=== PATIENT | male | born 1985 | race Caucasian/White ===

== ENCOUNTER 2022-01-07 09:43 | Inpatient (IN) | payer MEDICAID, OTHER ==
[~2022-01-07] VITALS: Ht 175.3 cm; Wt 203.1 kg
[2022-01-07] MEDS ORDERED: FUROSEMIDE 40 MG/4 ML VIAL IV ONE (11:00)
[2022-01-07] MEDS ORDERED: LABETALOL HCL 5 MG/ML 4ML SYRINGE IV ONE (15:15)
[2022-01-07] MEDS ORDERED: NITROGLYCERIN 0.4 MG SL TAB SL PRN (15:15)
[2022-01-07] MEDS ORDERED: MORPHINE SULFATE INJECTION 2 MG/ML SYRG IV PRN (15:15)
[2022-01-07 16:04] LABS: Hematocrit 50.2 % (41.0-53.0); Hemoglobin 16.1 g/dL (13.5-17.5); Mean Corpuscular Hemoglobin 28.2 pg (28.0-32.0); Mean Corpuscular Hgb Conc. 32.1 g/dL (32.0-36.0); Mean Corpuscular Volume 87.8 fL (80.0-100.0); Red Blood Cells 5.71 10^6/uL (4.5-5.90); Red Cell Distribution Width 18.8 % (11.8-14.3); White Blood Cell 12.9 10^3/uL (4.4-10.8)
[2022-01-07 16:08] LABS: Basophils % (manual) 0 (0.0-2.0); Blast Cells 0; Metamyelocytes % 0; Myelocytes % 0; Promyelocytes % 0
[2022-01-07 16:11] LABS: Calcium 9.7 mg/dL (8.5-10.1)
[2022-01-07 16:19] LABS: BUN/Creatinine Ratio 15.6; CRP High Sensitivity 1.3 mg/dL (< 0.3)
[2022-01-07] MEDS ORDERED: IOHEXOL 350 MG/ML 100ML IJ ONE ×2 (16:21→20:26)
[2022-01-07 16:25] LABS: INR 1.19 (0.9-1.15); Partial Thromboplastin Time 25.6 sec (23.6-33.0)
[2022-01-07 16:30] LABS: Thyroid Stimulating Hormone 1.36 uIU/mL (0.358-3.74)
[2022-01-07] MEDS: SODIUM CHLORIDE 0.9% 1,000 ML IV SCH (18:27)
[2022-01-07 18:37] LABS: Band Neutrophils % (manual) 1; Eosinophils % (manual) 1 (0-7); Lymphocytes % (manual) 13 (10.0-50.0); Monocytes % (manual) 9 (0-12)
[2022-01-07 18:38] LABS: Reactive Lymphocytes 2
[2022-01-07 22:04] LABS: BUN/Creatinine Ratio 15.7; Calcium 9.5 mg/dL (8.5-10.1); Potassium 4.1 mmol/L (3.5-5.1)
[2022-01-07 23:45] VITALS: BP 141/91
[2022-01-08 08:02] LABS: Basophils # (auto) 0.1 10 ^3/uL (0-0.2); Basophils % (auto) 0.5 % (0.0-2.0); Eosinophils # (auto) 0.1 10 ^3/uL (0-0.8); Eosinophils % (auto) 1.3 % (0.0-7.0); Hematocrit 49.7 % (41.0-53.0); Lymphocytes # (auto) 1.9 10 ^3/uL (0.4-5.4); Lymphocytes % (auto) 17.4 % (10.0-50.0); Mean Corpuscular Hemoglobin 28.5 pg (28.0-32.0); Mean Corpuscular Hgb Conc. 32.1 g/dL (32.0-36.0); Mean Corpuscular Volume 88.7 fL (80.0-100.0); Monocytes # (auto) 0.7 10 ^3/uL (0-1.3); Monocytes % (auto) 6.5 % (0.0-12.0); Neutrophils # (auto) 8.3 10 ^3/uL (1.6-8.6); Neutrophils % (auto) 74.3 % (37.0-80.0); Nucleated Red Blood Cells % 0.5 %; Red Blood Cells 5.61 10^6/uL (4.5-5.90); White Blood Cell 11.2 10^3/uL (4.4-10.8)
[2022-01-08 08:39] LABS: Calcium 9.2 mg/dL (8.5-10.1); Potassium 3.5 mmol/L (3.5-5.1)
[2022-01-08 08:41] LABS: INR 1.21 (0.9-1.15); Partial Thromboplastin Time 26.3 sec (23.6-33.0)
[2022-01-08 08:52] LABS: Albumin 3.7 g/dL (3.4-5.0); BUN/Creatinine Ratio 16.3; Bilirubin, Total 1.2 mg/dL (0.2-1.0); CRP High Sensitivity 1.58 mg/dL (< 0.3); Phosphorus 3.9 mg/dL (2.5-4.90); Total Protein 8.4 g/dL (6.4-8.2)
[2022-01-08] MEDS: SODIUM CHLORIDE 0.9% 1,000 ML IV SCH (10:40)
[2022-01-08 11:27] LABS: Amphetamine Screen, Urine NEGATIVE (NEGATIVE); Barbiturate Scree,Urine NEGATIVE (NEGATIVE); Benzodiazephine Screen, Urine NEGATIVE (NEGATIVE); Cannabinoid Screen, Urine NEGATIVE (NEGATIVE); Cocaine Screen, Urine NEGATIVE (NEGATIVE); Opiate Scree,Urine NEGATIVE (NEGATIVE); Phencyclidine Screen, Urine NEGATIVE (NEGATIVE)
[2022-01-08] MEDS ORDERED: FUROSEMIDE 40 MG/4 ML VIAL IV ONE (12:45)
[2022-01-08] MEDS ORDERED: DEXTROSE (50%) 50ML SYRG IV PRN (13:15)
[2022-01-08] MEDS: SODIUM CHLOR 0.9% PF (SALINE LOCK) 10ML VIAL/SYR IV SCH ×2 (13:38→22:00)
[2022-01-08] MEDS: hydrALAZINE HCL 25 MG TAB PO SCH ×2 (14:09→22:44)
[2022-01-08 21:45] VITALS: BP 144/85
[2022-01-08] MEDS: ACCU-CHEK COMFORT CURVE STRIP VI SCH (22:00)
[2022-01-08] MEDS: InsuLIN REG 1unit/0.01ml Soln (100units/ml) SC SCH ×2 (22:00→22:15)
[2022-01-08] MEDS: METOPROLOL TARTRATE 50 MG TAB PO SCH (22:43)
[2022-01-09 04:00] VITALS: BP 135/83
[2022-01-09] MEDS: hydrALAZINE HCL 25 MG TAB PO SCH ×3 (06:48→21:50)
[2022-01-09] MEDS: SODIUM CHLOR 0.9% PF (SALINE LOCK) 10ML VIAL/SYR IV SCH ×3 (06:48→21:50)
[2022-01-09] MEDS: ACCU-CHEK COMFORT CURVE STRIP VI SCH ×4 (06:48→21:47)
[2022-01-09] MEDS: InsuLIN REG 1unit/0.01ml Soln (100units/ml) SC SCH ×4 (06:49→21:56)
[2022-01-09 09:00] VITALS: BP 135/81
[2022-01-09] MEDS: METOPROLOL TARTRATE 50 MG TAB PO SCH ×2 (10:17→21:50)
[2022-01-09 11:43] LABS: BUN/Creatinine Ratio 17.9; Calcium 9.2 mg/dL (8.5-10.1); Potassium 3.6 mmol/L (3.5-5.1)
[2022-01-09 15:00] VITALS: BP 139/71
[2022-01-09 17:12] VITALS: BP 116/58
[2022-01-09 22:15] VITALS: BP 126/72
[2022-01-10 05:00] VITALS: BP 136/87
[2022-01-10] MEDS: InsuLIN REG 1unit/0.01ml Soln (100units/ml) SC SCH ×5 (06:00→22:07)
[2022-01-10] MEDS: hydrALAZINE HCL 25 MG TAB PO SCH ×3 (06:13→22:04)
[2022-01-10] MEDS: SODIUM CHLOR 0.9% PF (SALINE LOCK) 10ML VIAL/SYR IV SCH ×3 (06:14→22:34)
[2022-01-10] MEDS: ACCU-CHEK COMFORT CURVE STRIP VI SCH ×4 (06:16→22:04)
[2022-01-10 09:00] VITALS: BP 144/94
[2022-01-10] MEDS: METOPROLOL TARTRATE 50 MG TAB PO SCH ×2 (10:18→22:04)
[2022-01-10 12:35] LABS: Potassium 3.7 mmol/L (3.5-5.1)
[2022-01-10 12:37] LABS: BUN/Creatinine Ratio 22.8; Phosphorus 3.4 mg/dL (2.5-4.90)
[2022-01-10 13:00] VITALS: BP 140/89
[2022-01-10 13:12] LABS: Protein, Urine 67.5 mg/dL (0.0-11.9)
[2022-01-10 13:14] LABS: Urine Bacteria NONE SEEN /hpf (None Seen); Urine Blood Negative /uL (Negative); Urine Specific Gravity 1.012 (1.001-1.035); Urine WBC <1 /hpf (0 - 3)
[2022-01-10 16:50] VITALS: BP 141/76
[2022-01-10] MEDS ORDERED: ACETAMINOPHEN 325 MG TAB PO PRN (18:00)
[2022-01-10 21:54] VITALS: BP 117/57
[2022-01-11 05:03] VITALS: BP 132/72
[2022-01-11] MEDS: hydrALAZINE HCL 25 MG TAB PO SCH ×2 (05:33→15:47)
[2022-01-11] MEDS: SODIUM CHLOR 0.9% PF (SALINE LOCK) 10ML VIAL/SYR IV SCH ×2 (05:48→15:47)
[2022-01-11] MEDS: InsuLIN REG 1unit/0.01ml Soln (100units/ml) SC SCH ×3 (05:49→17:00)
[2022-01-11] MEDS: ACCU-CHEK COMFORT CURVE STRIP VI SCH ×3 (05:49→17:00)
[2022-01-11 05:54] LABS: BUN/Creatinine Ratio 23.5; Calcium 9.3 mg/dL (8.5-10.1); Potassium 4.3 mmol/L (3.5-5.1)
[2022-01-11] MEDS ORDERED: MET50T PO (08:50)
[2022-01-11] MEDS ORDERED: HYDR50TA15 PO (08:51)
[2022-01-11 09:00] VITALS: BP 140/80
[2022-01-11] MEDS: METOPROLOL TARTRATE 50 MG TAB PO SCH (09:49)
[2022-01-11 12:53] VITALS: BP 136/78
[2022-01-11 16:20] VITALS: BP 133/75
== END 2022-01-11 16:45 | disposition home or self-care (01) | DRG 199 ==
LOC: ER 09:43 → TELE 15:01 → TELE-CENTR 01-08 18:09
PROVIDERS: ADMIT Hospitalist; ATTEND Internal Medicine
PROC: 5A09357 Assistance with Respiratory Ventilation, Less than 24 Consecutive Hours, Continuous Positive Airway Pressure (ICD-10-PCS; principal; 2022-01-10)
DX: I16.1 Hypertensive emergency (principal); J96.01 Acute respiratory failure with hypoxia; N17.0 Acute kidney failure with tubular necrosis; E66.2 Morbid (severe) obesity with alveolar hypoventilation; Z68.44 Body mass index [BMI] 60.0-69.9, adult; U09.9 Post COVID-19 condition, unspecified; E11.22 Type 2 diabetes mellitus with diabetic chronic kidney disease; I48.0 Paroxysmal atrial fibrillation; E11.65 Type 2 diabetes mellitus with hyperglycemia; I12.9 Hypertensive chronic kidney disease with stage 1 through stage 4 chronic kidney disease, or unspecified chronic kidney disease; N18.32 Chronic kidney disease, stage 3b; E78.5 Hyperlipidemia, unspecified; Z79.4 Long term (current) use of insulin; Z87.01 Personal history of pneumonia (recurrent); Z87.442 Personal history of urinary calculi; Z20.822 Contact with and (suspected) exposure to COVID-19
CPT/HCPCS: 36415; 36600; 70450; 71045; 80048; 80053; 80061; 80307; 81001; 82570; 82728; 82805; 82962; 83036; 83615; 83735; 83880; 83970; 84100; 84156; 84300; 84443; 84484; 85007; 85025; 85027; 85379; 85610; 85652; 85730; 86141; 87426; 93005; 93306; 93970; 94660; 96374; 96375; 99291; G0378; J1815